=== PATIENT | female | born 2000 | race Caucasian/White ===

== ENCOUNTER 2022-04-10 19:39 | Emergency (ER) | payer SELFPAY ==
--- NOTE | ~2022-04-10 | XR_ITS ---
EXAMINATION: XR CHEST CLINICAL INFORMATION: Chest pain COMPARISON: None TECHNIQUE: Frontal view of the chest was obtained. FINDINGS: No significant abnormality is noted involving the heart, lungs, mediastinum, bony thorax or soft tissues. XR/XR chest 1V IMPRESSION: Unremarkable examination.
[2022-04-10 20:28] VITALS: BP 128/67; PULSE 98; RESP 16; TEMP 36.4; O2SAT 98; BMI 22.1
--- NOTE | 2022-04-10 20:43 | ECG_ITS ---
Test Reason : CHEST PAIN Blood Pressure : / mmHG Vent. Rate : 080 BPM Atrial Rate : 080 BPM P-R Int : 180 ms QRS Dur : 088 ms QT Int : 368 ms P-R-T Axes : 056 048 041 degrees QTc Int : 424 ms Normal sinus rhythm Normal ECG No previous ECGs available Referred By: Margoth Jackson Electronically Signed By:BRITTANEY BOWMAN MD
--- NOTE | 2022-04-10 20:45 | ED.GENADULT ---
HPI - General Adult General Chief complaint: General Medical <Margoth Jackson MD - Last Filed: 04/10/22 20:46> Stated complaint: rib pain, hurts to breathe <Margoth Jackson MD - Last Filed: 04/10/22 20:46> Time Seen by Provider: 04/10/22 21:15 <Margoth Jackson MD - Last Filed: 04/10/22 20:46> Source: patient <BEAU Lorenzo - Last Filed: 04/10/22 23:56> Mode of arrival: ambulatory <BEAU Lorenzo - Last Filed: 04/10/22 23:56> History of Present Illness HPI narrative: 22-year-old female with no significant past medical history presenting to the ED complaining of right-sided chest wall pain worse with deep breathing and palpation x months. Admits symptoms from been intermittent for a while, worsening over the past couple days. Admits recently flew here from [place]. Denies fever, chills, cough, abdominal pain, nausea/vomiting, pedal edema, calf pain, history of clots, cigarette smoking, oral OCPs <BEAU Lorenzo - Last Filed: 04/10/22 23:56> Onset (ago): month(s) <BEAU Lorenzo - Last Filed: 04/10/22 23:56> Related Data Home medications: Previous Rx's Medication Instructions Recorded lidocaine 5 % topical patch 1 patch topical DAILY PRN pain #30 04/10/22 (Lidoderm) ea <Margoth Jackson MD - Last Filed: 04/10/22 20:46> Allergies/adverse reactions: Allergies Allergy/AdvReac Type Severity Reaction Status Date / Time No Known Allergies Allergy Verified 04/10/22 20:42 <Margoth Jackson MD - Last Filed: 04/10/22 20:46> Review of Systems Review of Systems: Constitutional: No Fever, No Chills, No Fatigue, No Malaise ENT/Mouth: No Ear Pain, No Nasal Congestion, No Sinus Pain, No Hoarseness, No sore throat, No Rhinorrhea Eyes: No Eye Pain, No Swelling, No Redness, No Vision Changes Cardiovascular: + Chest Pain, + SOB, No Dyspnea on Exertion, No Orthopnea, No Edema, No Palpitations Respiratory: No Cough, No Sputum, No Smoke Exposure, No Dyspnea Gastrointestinal: No Nausea, No Vomiting, No Diarrhea, No Constipation, No Abdominal pain Genitourinary: No Dysuria, No Urinary Frequency, No Hematuria Musculoskeletal: No joint pain, No Myalgias Skin: No Skin Lesions, No rash Neuro: No Weakness, No Dizziness, No Headache <BEAU Lorenzo - Last Filed: 04/10/22 23:56> Yes all other systems are reviewed and are negative <BEAU Lorenzo - Last Filed: 04/10/22 23:56> Constitutional: Constitutional: Reports as per HPI <BEAU Lorenzo - Last Filed: 04/10/22 23:56> REPLACED BY [facility] Past Medical History Attestation statement: The following information was validated with the patient. <BEAU Lorenzo - Last Filed: 04/10/22 23:56> Social History Social History: Social History Advance Directives: No <Margoth Jackson MD - Last Filed: 04/10/22 20:46> Physical Exam ED Vital Signs: Vital Signs - 24 hr 04/10/22 20:28 Temperature 97.6 F Pulse Rate 98 Respiratory Rate 16 Blood Pressure 128/67 Pulse Oximetry 98 Oxygen Delivery Method Room Air BMI result Body Mass Index 22.1 <Margoth Jackson MD - Last Filed: 04/10/22 20:46> Vital Signs - 24 hr 04/10/22 20:28 Temperature 97.6 F Pulse Rate 98 Respiratory Rate 16 Blood Pressure 128/67 Pulse Oximetry 98 Oxygen Delivery Method Room Air BMI result Body Mass Index 22.1 <BEAU Lorenzo - Last Filed: 04/10/22 23:56> Const General: cooperative, healthy appearing and no acute distress <BEAU Lorenzo - Last Filed: 04/10/22 23:56> Orientation/consciousness: patient oriented x3 <BEAU Lorenzo Last Filed: 04/10/22 23:56> Limitations: no limitations <BEAU Lorenzo Last Filed: 04/10/22 23:56> HENMT Head: Yes normal to inspection and Yes atraumatic <BEAU Lorenzo - Last Filed: 04/10/22 23:56> Ears: hearing grossly normal bilaterally <BEAU Lorenzo - Last Filed: 04/10/22 23:56> General nose exam: Normal external nose present <BEAU Lorenzo - Last Filed: 04/10/22 23:56> Face and sinus: Yes normal facial exam <BEAU Lorenzo - Last Filed: 04/10/22 23:56> Eyes General: appearance normal, both eyes and all related structures <BEAU Lorenzo - Last Filed: 04/10/22 23:56> EOM: EOMs intact bilaterally <BEAU Lorenzo - Last Filed: 04/10/22 23:56> Neck Neck: Yes normal visual inspection and Yes no meningeal signs <BEAU Lorenzo - Last Filed: 04/10/22 23:56> Chest Chest palpation & inspection: normal inspection of the chest, no crepitus and tenderness (Right anterior lateral chest wall) <BEAU Lorenzo - Last Filed: 04/10/22 23:56> Resp Effort & Inspection: normal respiratory effort and no respiratory distress <BEAU Lorenzo - Last Filed: 04/10/22 23:56> Auscultation: clear to auscultation bilaterally, no crackles, no rales and no rhonchi <Georgina Carranza [place] - Last Filed: 04/10/22 23:56> Cardio Rate: regular rate <BEAU Lorenzo - Last Filed: 04/10/22 23:56> Heart sounds: S1 normal heart sound present and S2 normal heart sound present <BEAU Lorenzo - Last Filed: 04/10/22 23:56> GI Inspection: Yes normal to inspection <BEAU Lorenzo - Last Filed: 04/10/22 23:56> Palpation (GI): Soft to palpation, nontender, no guarding and not rigid <BEAU Lorenzo - Last Filed: 04/10/22 23:56> Skin Rashes: no rashes <BEAU Lorenzo - Last Filed: 04/10/22 23:56> Wounds: no wounds <BEAU Lorenzo - Last Filed: 04/10/22 23:56> Neuro General: patient oriented x3, tone normal and no meningeal signs <BEAU Lorenzo - Last Filed: 04/10/22 23:56> Gait exam (Neuro): Normal gait present <BEAU Lorenzo - Last Filed: 04/10/22 23:56> Extrem General: Yes normal to inspection, Yes no pedal edema and Yes no calf tenderness <BEAU Lorenzo - Last Filed: 04/10/22 23:56> Course Course Course Narrative: RME-Patient [age] female presents today with having chest pain is worse when she takes a deep breath. Worse on the right side. Had for years getting worse. Patient feels short of breath when she takes a deep breath or moves. Patient's pain is sharp. Never had a punctured lung. Never had a blood clot. Recently flew back from [place]. No leg swelling. Not on control. We will go ahead and order labs chest x-ray. Patient placed back in the waiting room <Margoth Jackson MD - Last Filed: 04/10/22 20:46> RME-Patient [age] female presents today with having chest pain is worse when she takes a deep breath. Worse on the right side. Had for years getting worse. Patient feels short of breath when she takes a deep breath or moves. Patient's pain is sharp. Never had a punctured lung. Never had a blood clot. Recently flew back from [place]. No leg swelling. Not on control. We will go ahead and order labs chest x-ray. Patient placed back in the waiting room -[id number]--labs unremarkable. Troponin negative. negative. D-dimer WNL -COVID-19/influenza/RSV negative. CXR unremarkable Results discussed with patient including worrisome signs and symptoms and strict return precautions, and when to return to the emergency department. They verbalized understanding and feel safe for discharge at this time. <BEAU Lorenzo - Last Filed: 04/10/22 23:56> Medical Decision Making Medical Decision Making MDM Narrative: 22-year-old female with no significant past medical history presenting to the ED complaining of right-sided chest wall pain worse with deep breathing and palpation x months. On exam vital signs stable, NAD, nontoxic appearing, physical exam as above with reproducible chest wall tenderness. Lungs CTA. No pedal edema/calf pain. Concern for viral illness vs PE. Symptoms atypical for ACS. Rule out pneumonia. Plan: Labs, CXR, COVID 19/influenza/RSV testing <BEAU Lorenzo - Last Filed: 04/10/22 23:56> Differential Diagnoses: Differential diagnosis (as above) <BEAU Lorenzo - Last Filed: 04/10/22 23:56> Lab Attestation: I reviewed the patient's lab results. <BEAU Lorenzo - Last Filed: 04/10/22 23:56> Discharge Plan Discharge Clinical Impression: Costochondritis <Margoth Jackson MD - Last Filed: 04/10/22 20:46> Patient Disposition: Home, Self-Care <Margoth Jackson MD - Last Filed: 04/10/22 20:46> Instructions: Costochondritis (ED) <Margoth Jackson MD - Last Filed: 04/10/22 20:46> Additional Instructions: Your blood work was reassuring today in the ED. Your x-ray was unremarkable. You tested negative for COVID-19 and the flu Take Tylenol and Motrin at home as needed for pain In addition Lidoderm patches or numbing patches apply to painful area Have close follow-up with her doctor If symptoms persist or worsen return to the emergency department <Margoth Jackson MD - Last Filed: 04/10/22 20:46> Prescriptions: New lidocaine [Lidoderm] 5 % adhesive patch,medicated 1 patch topical DAILY MDD remove after 12 hours PRN (Reason: pain) Qty: 30 0RF Rx Instructions: leave on most painful area for up to 12 hrs <Margoth Jackson MD - Last Filed: 04/10/22 20:46> Referrals: [facility]] [facility] [Provider Group] <Margoth Jackson MD - Last Filed: 04/10/22 20:46> Stand Alone Forms: Work/School Release <Margoth Jackson MD - Last Filed: 04/10/22 20:46> Interventions: ED Discharge Assessment Last Done: 04/10/22 22:49 <Margoth Jackson MD - Last Filed: 04/10/22 20:46> Discharge Date/Time: 04/10/22 22:49 <Margoth Jackson MD - Last Filed: 04/10/22 20:46>
[2022-04-10 21:32] LABS: Basophils Percent Auto 0.4 % (0-2); Eosinophils Absolute Auto 0.2 X10*3/uL (0.0-0.4); Eosinophils Percent Auto 2.3 % (0-4); Hematocrit 37.9 % (37.0-47.0); Hemoglobin 12.8 g/dl (12.0-16.0); Imm Gran Abs Auto 0.03 X10*3/uL (0.00-0.03); Imm Gran Pct Auto 0.3 % (0.0-0.4); Lymphocytes Absolute Auto 3.2 X10*3/uL (1.2-4.9); Lymphocytes Percent Auto 30.7 % (20-40); MANUAL DIFF FLAG NO; Mean Corpuscular HGB Conc 33.8 g/dl (31.0-35.0); Mean Corpuscular Hemoglobin 30.3 pg (27.0-33.0); Mean Corpuscular Volume 89.8 fL (80.0-98.0); Mean Platelet Volume 10.3 fL (9.4-12.3); Monocytes Absolute Auto 0.6 X10*3/uL (0.1-1.2); Neutrophils Absolute Auto 6.3 x10*3/uL (2.0-8.3); Neutrophils Percent Auto 60.3 % (45-73); Platelet Count 289 X10*3/uL (160-400); Red Blood Count 4.22 X10*6/uL (4.20-5.50); Red Cell Distribution Width 12.9 % (11.0-16.0); White Blood Count 10.4 X10*3/uL (4.8-10.8)
[2022-04-10 21:40] LABS: D Dimer High Sensitivity 197 NG/ML
[2022-04-10 21:49] LABS: Anion Gap 12 (12-20); Blood Urea Nitrogen 15 mg/dL (9-16); Calcium 9.7 mg/dL (8.4-10.2); Carbon Dioxide 26 mmol/L (22-29); Chloride 105 mmol/L (96-108); Creatinine Clr Calc Pharmacy 93.9; Estimated Glomerular Filt Rate > 60; Glucose Random 101 mg/dL (60-115); Potassium 4.6 mmol/L (3.3-5.1); Sodium 138 mmol/L (135-145)
[2022-04-10 21:57] LABS: HCG Quantitative < 2 mIU/mL
[2022-04-10 22:13] LABS: Troponin-I High Sensitivity < 3.5 ng/L (<3.5-17.0)
[2022-04-10 22:23] LABS: Influenza A PCR NEGATIVE (Negative); Influenza B PCR NEGATIVE (Negative); Resp Syncy Virus RNA Qual PCR NEGATIVE (Negative); SARS COV2 PCR INHOUSE NEGATIVE (Negative)
== END 2022-04-10 22:49 | disposition home or self-care (01) ==
PROVIDERS: Emergency Medicine Emergency Medical Services; Physician Assistant; Emergency Provider Internal Medicine
DX: M94.0 Chondrocostal junction syndrome [Tietze] (principal); R07.81 Pleurodynia; R06.02 Shortness of breath; Z79.899 Other long term (current) drug therapy; Z20.822 Contact with and (suspected) exposure to COVID-19
CPT/HCPCS: 0241U; 36415; 71045; 80048; 84484; 84702; 85025; 85379; 93005; 99283